=== PATIENT | male | born 1940 | race Caucasian/White ===

== ENCOUNTER 2017-04-10 10:43 | Inpatient (IN) | payer MEDICARE, OTHER ==
[2017-03-30 10:14] LABS: HEMATOCRIT 41.1 % (40.0-51.0); HEMOGLOBIN 13.7 g/dL (13.6-17.8)
[2017-03-30 10:27] LABS: CHLORIDE, SERUM 107 MMOL/L (96-112); CO2 (CARBON DIOXIDE) 28 MMOL/L (24-34); CREATININE 1.11 MG/DL (0.70-1.30); GFR AFRICAN AMERICAN 74 ML/MIN (>=60); GFR NON AFRICAN AMERICAN 64 ML/MIN (>=60); GLUCOSE, SERUM 97 MG/DL (60-99); SODIUM, SERUM 141 MMOL/L (135-148)
[2017-03-30 10:28] LABS: BUN (BLOOD UREA NITROGEN) 23 MG/DL (6-23); POTASSIUM, SERUM 4.9 MMOL/L (3.5-5.3)
--- NOTE | ~2017-04-10 | HP ---
History And Physical [id number] [place]. [address] NAME: EDISON PEDROZA : 38 STATUS : ADM IN [facility]#: [id number] AGE: 77 ADM/REG DATE : 04/10/17 MR#: [id number] REPORT SERV DATE: 04/11/17 DICTATED BY: SUNI ROSE DATE: 04/10/17 REPORT STATUS : Draft TRANSCRIBED BY: JOSEMANUEL DATE: 04/10/17 DATE OF ADMISSION: 04/10/2017 REASON FOR ADMISSION: Left hemicolectomy for extensive persistent diverticulitis. PAST MEDICAL HISTORY: Diverticulitis, type 2 diabetes, hypertension, and prostate cancer. SOCIAL HISTORY: Does not smoke or drink. He is . FAMILY HISTORY: Noncontributory except for type 2 diabetes. MEDICATIONS: Omeprazole, Zyrtec, lisinopril, aspirin, simvastatin, metformin, glucosamine, and fish oil. REVIEW OF SYSTEMS: As stated in HPI, otherwise, negative. PHYSICAL EXAMINATION: VITAL SIGNS: 190 pounds, 59, 120/75, BMI of 30. GENERAL: Alert, moderately obese, elderly white male, in no acute distress. HEENT: Normocephalic, atraumatic. EOMI. PERRLA. Oropharynx is clear. NECK: Supple. No lymphadenopathy. Clear to auscultation bilaterally. HEART: Regular rate and rhythm. ABDOMEN: Soft. Moderately obese with easily reducible umbilical hernia. EXTREMITIES: Moves all extremities well. NEURO: Cranial nerves 2 through 12 intact. SKIN: No rashes. ASSESSMENT AND PLAN: A 76-year-old white male with persistent diverticulitis, requiring resection. RHYS/JOSEMANUEL Suni Rose M.D. / [id number] CC: Suni Rose M.D.
--- NOTE | ~2017-04-10 | DS ---
Discharge Summary [facility] [address] [place]. [address] NAME: EDISON PEDROZA : 38 STATUS : DIS IN PAT#: [id number] AGE: 77 ADM/REG DATE : 04/10/17 MR#: [id number] REPORT SERV DATE: 04/27/17 DICTATED BY: SUNI LEIJA DATE: 04/26/17 REPORT STATUS : Draft TRANSCRIBED BY: JOSEMANUEL DATE: 04/26/17 Data Collection from hospitalization DISCHARGE DIAGNOSES: 1. Chronic persistent diverticulitis. 2. Hypertension. 3. Type 2 diabetes. 4. History of prostate cancer. CONSULTATIONS: None. PROCEDURES PERFORMED: Robotic converted to lap hand assist, low anterior resection converted to left hemicolectomy with mobilization of the splenic flexure. Total operative time was 5 hours and for this reason, a modifier 22 was applied, 04/10/2017. PATHOLOGY: Rectosigmoid colon partial colectomy-diverticular disease. Colon "ring" reanastomosis-within normal limits. MEDICATIONS: Tylenol 650 mg twice a day as instructed, aspirin 81 mg daily, Jaan 180 mg daily, glucosamine one tablet twice a day, [place] 7.5/325 one to two tablets every four to six hours as needed, Prinivil 5 mg daily, Glucophage 1000 mg twice a day, Centrum one tablet daily, fish oil 2000 mg twice a day, Prilosec 20 mg daily, Zocor 20 mg at bedtime, probiotic one capsule twice a day. CONDITION AT DISCHARGE: Stable. DISPOSITION: The patient was discharged home on a soft 2000-calorie diabetic diet with activities as instructed. He would follow up with me two weeks following discharge. HOSPITAL COURSE: This is a 77-year-old man, who has had persistent diverticulitis. Treatment options were discussed and it was elected to proceed with surgical intervention. He was admitted to the hospital at this time for further evaluation and treatment. Upon admission, he was taken to the operating room, where he underwent the above-mentioned procedure. He tolerated this well and there were no complications. On postop day one, he did have some pain. He was tolerating clear liquids. He was belching. We encouraged him to ambulate. The Montoya catheter was removed. On the , he did have some urinary retention. He had good blood glucose control. Montoya catheter was going to be removed. He was tolerating a regular diet. He did require catheterization for his retention. This was a straight cath. The Montoya catheter had been removed. On 04/14/2017, he did have a bowel movement. His diet was advanced. Discharge planning was performed. He did complain of some reflux. His pain was controlled. Discharge planning continued. On 04/16/2017, he did have a large bowel movement. O2 saturation was 93% on room air. Discharge instructions were given. Due to his improved and stable condition, he was discharged home with the above-stated instructions. Information collected by: Kiersten Constantino Discharge Summary [address] [place]. [address] NAME: EDISON PEDROZA : 38 STATUS : DIS IN PAT#: [id number] AGE: 77 ADM/REG DATE : 04/10/17 MR#: [id number] REPORT SERV DATE: 04/27/17 DICTATED BY: SUNI LEIJA DATE: 04/26/17 REPORT STATUS : Draft TRANSCRIBED BY: JOSEMANUEL DATE: 04/26/17 I submit the above information as my discharge summary. NATIVIDAD/JOSEMANUEL Suni Leija M.D. / [id number] CC: Carlos Winkler M.D.
--- NOTE | ~2017-04-10 | OP ---
Record Of Operation [facility] [address] [place]. [address] NAME: EDISON PEDROZA : 38 STATUS : ADM IN PAT#: [id number] AGE: 77 ADM/REG DATE : 04/10/17 MR#: [id number] REPORT SERV DATE: 04/11/17 DICTATED BY: SUNI LEIJA DATE: 04/10/17 REPORT STATUS : Draft TRANSCRIBED BY: MODL DATE: 04/10/17 DATE OF PROCEDURE: 04/10/2017 PREPROCEDURE DIAGNOSIS: Chronic persistent diverticulitis. POSTPROCEDURE DIAGNOSIS: Chronic persistent diverticulitis. LUMBER BUYER: Ryne Worrell. PROCEDURE: Robotic converted to lap hand assist, low anterior resection converted to left hemicolectomy with mobilization of the splenic flexure. Total operative time is 5 hours, and for this reason, I am applying a modifier 22. PROCEDURE IN DETAIL: The patient was taken to the operating room, induced under general anesthesia, placed into lithotomy. Proctoscopy with distal rectal washout was performed followed by Montoya catheter. The patient was prepped and draped in the usual sterile fashion beginning with a 2 cm incision which was 2 cm from the umbilicus with scalpel. This was carried down to the level of the fascia. Anterior fascia was opened between two Noman's. Posterior fascia was opened between two hemostats. Great care was taken to avoid injuring any rectus muscle. The blunt end of the DeBakey's was placed in the abdomen and stay sutures were placed on either side with 2-0 Vicryl UR6. The balloon trocar was placed in through the abdomen insufflated, and the abdomen was insufflated on high flow under direct laparoscopic guidance. The rest of the trocars were placed, first a stab incision in the right lower quadrant with an 8 mm trocar replaced with a 12 mm trocar and this was then opened 4 cm where the wound protector was placed through the fascia followed by the anvil with the suture tied to it and then the 12 trocar with an 8 sleeve and a Jeovanny was used to tighten the wound protector around the port. Few 8's were placed on the left side and then a 5 mm blunt trocar placed in the right upper quadrant. The robot was docked and dissection began of the sigmoid colon all the way to the splenic flexure where the robot would no longer reach and all the way down past the rectosigmoid junction. There was extensive scarring, firm fibrotic areas, one at the rectosigmoid and one in the left descending colon. Dissection was careful and tedious particularly in the left retroperitoneum where the ureter was identified. Following this, then the rectum was elevated. The distal aspect of transection was marked in the mesentery with scissors on the mesentery and also the proximal portion, which was the proximal descending colon. Then, a window was made in the mesentery and two green loads of the Endo-DAJUAN. Robotic Endo DAJUAN was used to transect the rectum. The mesentery was taken with the vessel sealer up to the level of the splenic flexure. It was great difficulty mobilizing the splenic flexure since the robot would not reach that far. The omentum was taken off the transverse colon in an effort to gain mobilization. At this point, the ample was cut from the suture and an enterotomy made in the descending colon. However, even though the enterotomy was easily large enough, due to the fibrotic nature of the descending colon, it could not be passed through the lumen and this was when the decision was made to convert to lap hand assist. A 6 cm incision was made in the midline where the GelPort was placed, and the 5 mm trocar in the right upper quadrant was changed to a 12 mm direct laparoscopic guidance. Here, the splenic flexure was mobilized completely. The colon was brought up through the wound protector. Blue towels were placed on the Record Of Operation [address] [address] NAME: EDISON PEDROZA : 38 STATUS : ADM IN [facility]#: [id number] AGE: 77 ADM/REG DATE : 04/10/17 MR#: [id number] REPORT SERV DATE: 04/11/17 DICTATED BY: SUNI LEIJA DATE: 04/10/17 REPORT STATUS : Draft TRANSCRIBED BY: MODMorelia DATE: 04/10/17 abdomen. The colon was transected at the proximal portion of the descending colon between two Noman's and then a pursestring suture was placed with 2-0 Prolene followed by the anvil, was tied taut around the shaft of the anvil and the undersurface cleared of all fat. At this point, all dirty instruments were taken below by Ryne Worrell. Dr. Lezama changed her gloves. The GelPort lid was replaced and Ryne Worrell dilated the anus one, two, then three fingers bringing the 29 EEA up through the anus where the spike was brought out anterior to the staple line. The anvil was to the spike under direct laparoscopic guidance. It was closed until the marker was chcf in the green window. Then, all the way through the green window for 15 seconds and then fired and held for 15 seconds. Ryne brought it out through the anus. There were two complete donuts which were passed off the table and sent to pathology. The pelvis was filled with irrigation. Dr. Lezama clamped the bowel proximal to the anastomosis and Ryne tested using insufflation on proctoscopy. This was a negative leak test. There were no air bubbles. At this point, Ryne removed the proctoscope, regowned and gloved. Dr. Lezama removed the irrigation. All trocars were removed. An 11 mm trocar site in the left upper quadrant was closed intracorporeally, 2-0 Vicryl UR6, the 4 cm incision in the right lower quadrant. Posterior and anterior fascia was closed with running 0 Prolene suture. Seprafilm was placed over the omentum in the midline. The midline was closed with loop PDS, proximal to middle, distal to middle, tying in the center, irrigating all wounds, closing all skin incisions with 4-0 Monocryl followed by Mastisol Steri-Strips, Band-Aids ,and the smallest airstrip. He tolerated the procedure well. RHYS/JOSEMANUEL Suni Leija M.D. / [id number] CC: Carlos Winkler M.D. Kimberly Carlton, M.D.
[~2017-04-10 10:43] MED LIST: 8 HOUR650 MG PO; ALEVE220 MG PO; ALLEGRA180 PO; ASAB PO; CENTRUM PO; COSAMIN DS1 TAB PO; FISH-EPA1000 MG PO; FLAG500TAB PO; GLUCCHONDR PO; GLUCOPHAGE1000 MG PO; GLUCOSAMINEPO PO; LEVAQUIN5T PO; MAXITROL; MAXITROL OPH; MULTIPLE VIT PO; PRILO PO; PRIN5 PO; PROBIOTIC PO; ZESTRIL5 MG PO; ZOCOR20 PO; ZYRTEC ALLGY10 MG PO
[2017-04-10 21:54] LABS: HEMATOCRIT 38.1 % (40.0-51.0); HEMOGLOBIN 12.6 g/dL (13.6-17.8)
[2017-04-11 05:50] LABS: BASOPHILS 0 %; EOSINOPHILS 0 %; HEMATOCRIT 37.2 % (40.0-51.0); HEMOGLOBIN 12.3 g/dL (13.6-17.8); IMMATURE GRANULOCYTES 0.3 %; IMMATURE GRANULOCYTES ABSOLUTE 0.02 10/3/uL (0.0-0.11); LYMPHOCYTES ABSOLUTE 0.73 10/3/uL (0.67-4.30); MEAN CORPUS HGB CONC 33.1 g/dL (32.0-36.0); MEAN CORPUSCULAR HEMOGLOB 31.8 pg (26.0-34.0); MEAN CORPUSCULAR VOLUME 96.1 fL (80-100); MEAN PLATELET VOLUME 9.4 fL (9.2-13.0); MONOCYTES 11.5 %; MONOCYTES ABSOLUTE 0.84 10/3/uL (0.21-1.20); NEUTROPHILS 78.2 %; NEUTROPHILS ABSOLUTE 5.74 10/3/uL (2.02-8.40); PLATELET COUNT 199 10/3/uL (150-400); RBC DISTRIBUTION WIDTH 13.2 % (12.0-16.0); RED CELL COUNT 3.87 10/6/uL (4.7-6.1)
[2017-04-11 05:51] LABS: MANUAL DIFF NO %; WHITE BLOOD CELLS 7.3 10/3/uL (4.5-10.5)
[2017-04-11 06:00] LABS: BUN (BLOOD UREA NITROGEN) 17 MG/DL (6-23); CALCIUM, SERUM 8.5 MG/DL (8.5-10.4); CHLORIDE, SERUM 107 MMOL/L (96-112); CO2 (CARBON DIOXIDE) 28 MMOL/L (24-34); CREATININE 1.07 MG/DL (0.70-1.30); GFR AFRICAN AMERICAN 77 ML/MIN (>=60); GFR NON AFRICAN AMERICAN 66 ML/MIN (>=60); GLUCOSE, SERUM 140 MG/DL (60-99); POTASSIUM, SERUM 4.3 MMOL/L (3.5-5.3); SODIUM, SERUM 142 MMOL/L (135-148)
[2017-04-12] MEDS ORDERED: NORCO1 TA2 PO (12:39)
[2017-04-15 07:42] LABS: BASOPHILS 0.3 %; BASOPHILS ABSOLUTE 0.02 10/3/uL (0.0-0.16); EOSINOPHILS 5.9 %; EOSINOPHILS ABSOLUTE 0.37 10/3/uL (0.0-0.53); HEMATOCRIT 34.9 % (40.0-51.0); HEMOGLOBIN 11.6 g/dL (13.6-17.8); IMMATURE GRANULOCYTES 0.5 %; IMMATURE GRANULOCYTES ABSOLUTE 0.03 10/3/uL (0.0-0.11); LYMPHOCYTES 19.1 %; LYMPHOCYTES ABSOLUTE 1.21 10/3/uL (0.67-4.30); MEAN CORPUS HGB CONC 33.2 g/dL (32.0-36.0); MEAN CORPUSCULAR HEMOGLOB 31.4 pg (26.0-34.0); MEAN CORPUSCULAR VOLUME 94.6 fL (80-100); MONOCYTES ABSOLUTE 1.01 10/3/uL (0.21-1.20); NEUTROPHILS 58.2 %; NEUTROPHILS ABSOLUTE 3.68 10/3/uL (2.02-8.40); PLATELET COUNT 243 10/3/uL (150-400); RBC DISTRIBUTION WIDTH 13.4 % (12.0-16.0); RED CELL COUNT 3.69 10/6/uL (4.7-6.1); WHITE BLOOD CELLS 6.3 10/3/uL (4.5-10.5)
[2017-04-15 07:44] LABS: MANUAL DIFF NO %
[2017-04-15 07:59] LABS: BUN (BLOOD UREA NITROGEN) 17 MG/DL (6-23); CALCIUM, SERUM 8.8 MG/DL (8.5-10.4); CHLORIDE, SERUM 106 MMOL/L (96-112); CREATININE 0.82 MG/DL (0.70-1.30); GFR AFRICAN AMERICAN 98 ML/MIN (>=60); GFR NON AFRICAN AMERICAN 85 ML/MIN (>=60); POTASSIUM, SERUM 4.9 MMOL/L (3.5-5.3); SODIUM, SERUM 136 MMOL/L (135-148)
[2017-04-15 08:00] LABS: CO2 (CARBON DIOXIDE) 23 MMOL/L (24-34); GLUCOSE, SERUM 109 MG/DL (60-99)
== END 2017-04-16 12:01 | disposition home or self-care (01) | DRG 330 ==
LOC: SDC/OF 10:43 → PACU 20:37 → 5SO 21:36
PROVIDERS: Surgery
PROC: 0DTG4ZZ Resection of Left Large Intestine, Percutaneous Endoscopic Approach (ICD-10-PCS; principal; 2017-04-10 12:00)
DX: K57.32 Diverticulitis of large intestine without perforation or abscess without bleeding (principal); K91.89 Other postprocedural complications and disorders of digestive system; K56.7 Ileus, unspecified; E11.9 Type 2 diabetes mellitus without complications; E66.9 Obesity, unspecified; I10 Essential (primary) hypertension; E78.5 Hyperlipidemia, unspecified; Z68.30 Body mass index [BMI] 30.0-30.9, adult; G47.33 Obstructive sleep apnea (adult) (pediatric); Z85.46 Personal history of malignant neoplasm of prostate; Z79.84 Long term (current) use of oral hypoglycemic drugs; Z79.82 Long term (current) use of aspirin; Z79.899 Other long term (current) drug therapy
CPT/HCPCS: 36415; 80048; 82962; 85014; 85018; 85025; 86850; 86900; 86901; 88307; 93005; A9270-GY; C1765; J0690; J2250; J2270; J2370; J2405; J2550; J2710; J2795; J3010; P9045